=== PATIENT | female | born 1960 | race Caucasian/White ===

== ENCOUNTER → 2020-02-28 12:42 | Outpatient (BNVA) | payer OTHER, SELFPAY | PROVIDERS: Visit Provider Nurse Practitioner Family | DX: Z11.59 Encounter for screening for other viral diseases (principal) | CPT/HCPCS: 87635 ==

== ENCOUNTER 2020-03-29 08:30 | Outpatient (RCR) | payer OTHER, SELFPAY | END 2020-04-28 23:59 | disposition home or self-care (01) | LOC: SPT 08:30 | PROVIDERS: PCP Family Medicine; Referring Provider Chiropractor; Visit Provider Chiropractor | DX: M25.512 Pain in left shoulder (principal); M25.511 Pain in right shoulder | CPT/HCPCS: 97110; 97161 ==

== ENCOUNTER 2020-04-20 09:49 | Outpatient (CLI) | payer OTHER, SELFPAY ==
--- NOTE | 2020-04-20 09:53 | MM_ITS ---
WS: [id number] BILATERAL DIGITAL SCREENING MAMMOGRAPHY WITH CAD CLINICAL INFORMATION: SCREENING HISTORY: Screening mammogram. No current complaints. COMPARISON: February 06, 2007 TECHNIQUE: Bilateral CC and MLO views. FINDINGS: The breasts are composed of heterogeneous fibroglandular density tissue, which can limit the detectio n of small underlying mass lesions. No suspicious mass, asymmetry, calcifications, or architectural d istortion. No evidence of malignancy. MM/[place] [id number] IMPRESSION: BI-RADS: 1-Negative FOLLOW UP: 1 Year Follow-up Recommend return to annual screening mammography.
== END 2020-04-20 09:50 | disposition home or self-care (01) ==
LOC: RADSHAW 09:50
PROVIDERS: PCP Family Medicine; Visit Provider Family Medicine
DX: Z12.31 Encounter for screening mammogram for malignant neoplasm of breast (principal)
CPT/HCPCS: 77067

== ENCOUNTER 2022-06-24 06:21 | Emergency (ER) | payer BC, SELFPAY ==
[2022-06-24 06:23] VITALS: BP 103/52; PULSE 71; RESP 16; TEMP 36.8; O2SAT 96; BMI 22.4
--- NOTE | 2022-06-24 06:27 | XRR_ITS ---
PROCEDURE INFORMATION: Exam: XR Chest Exam date and time: 06/24/2022 6:33 AM Age: 61 years old Clinical indication: Pain; Angina pectoris; Prior surgery; Surgery type: Chest tubes; Additional info: Cp TECHNIQUE: Imaging protocol: Radiologic exam of the chest. Views: 1 view. Total images: 421 COMPARISON: No relevant prior studies available. FINDINGS: Lungs: Postsurgical changes noted at the lung apices with adjacent pleural thickening. Trace atelectasis or scar noted in the left lung base. Pleural spaces: See Lungs finding. Heart/Mediastinum: Unremarkable. No cardiomegaly. Bones/joints: Unremarkable. XR/XR chest 1V portable [id number] IMPRESSION: 1. Postsurgical changes noted at the lung apices with adjacent pleural thickening. 2. Trace atelectasis or scar noted in the left lung base.
[2022-06-24 06:31] VITALS: BP 114/58; PULSE 73; RESP 16; O2SAT 91
--- NOTE | 2022-06-24 06:34 | ECG_ITS ---
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 Measurements Intervals [place] Rate: 71 P: 43 CT: 176 QRS: 35 QRSD: 102 T: 61 QT: 420 QTc: 457 Interpretive Statements SINUS RHYTHM No previous ECG available for comparison Electronically Signed On 06-24-2022 15:16:35 SEAT TRIMMER by Darius Reyes M.D. [id number]
--- NOTE | 2022-06-24 06:36 | ED_ITS ---
HPI - Chest Pain General: Chief Complaint: Nausea/Vomiting/Diarrhea Stated Complaint: CP Time Seen by Provider: 06/24/22 06:27 History of Present Illness: 61-year-old female presents with chest pain. She reports around 2 AM this morning she started having some nausea and multiple epi sodes of vomiting. The approximately 1 hour prior to arrival she developed some lower substernal/epigastric chest pain. That she called EMS. The chest pain resolved following another episode of vomiting in route. She was given 324 aspirin by EMS and 4 Zofran. At this time she is currently not nauseous and does not have any chest pain. EMS reports she was significantly diaphoretic when they arrived. No radiation of the pain. Associated symptoms: Reports abdominal pain (Epigastric), nausea and vomiting; Deny dyspnea, fever(s) or palpitations Review of Systems Const: Denies: fever(s) or chills ENMT: Denies: throat pain or mouth pain Card: Reports: chest pain; Denies: palpitations, irregular heart rhythm or lightheadedness Resp: Denies: dyspnea or productive cough GI: Reports: abdominal pain (Epigastric), nausea and vomiting : Denies: flank pain or difficulty voiding Musc: Denies: neck pain or back pain Skin/Breast: Denies: rash or pruritus Neuro: Denies: headache(s) Psych: Denies: anxiety or depression ON LICENSE OF [facility] ED PFSH: Medical History Chronic middle ear effusion Generalized anxiety disorder Surgical History History of lung surgery Family History Other Hypertension Denies family history of Dementia Social History Smoking and tobacco status: current every day smoker cigarettes [ Other cigar ette details: 1/2 pack per week] Alcohol intake: current Alcohol intake frequency: few times a month Physical Exam Const: COMMON NORMALS: no acute distress, patient oriented x3, no limitations and healthy appearing HENMT: COMMON NORMALS: normocephalic, atraumatic and hearing grossly normal bilaterally HEAD & SCALP: normocephalic and atraumatic Resp: COMMON NORMALS: normal respiratory effort, No retractions and No use of accessory muscles Cardio: COMMON NORMALS: regular rate and regular rhythm RATE: regular rate RHYTHM: regular rhythm GI: COMMON NORMALS: Soft to palpation PALPATION: Yes Soft to palpation and Yes Tenderness to palpation present (GI) Details: other (Epigastric) Neuro: COMMON NORMALS: patient oriented x3, CN's II-XII intact bilaterally, moves all extremities and no focal motor deficits Skin: COMMON NORMALS: no rashes or lesions noted, no wounds and turgor normal GENERAL SKIN EXAM: no rashes or lesions noted and turgor normal Course Vital Signs: Vital signs: Vital Signs Temperature 98.2 F 06/24/22 06:23 Pulse Rate 75 06/24/22 08:28 Respiratory Rate 16 06/24/22 06:31 Blood Pressure 120/67 06/24/22 08:28 Pulse Oximetry 92 06/24/22 08:28 Oxygen Delivery Me thod 06/24/22 08:28 MDM - Chest Pain Medical Decision Making Patient's labs were reviewed by me. Patient had elevated white count which was likely reactive due to her nausea and vomiting. Patient's troponin x2 were negative. Patient is EKG was reviewed by me and was negative for any acute changes and ST elevation x2. Patient's radiology studies were reviewed and read initially by me than radiology results were reviewed. Patient's symptoms completely resolved following her vomiting in route with EMS. She has had no further symptoms since arriving. EMS also provided part of her HPI. Patient symptoms are likely due to her nausea and vomiting from unknown cause. Patient very unlikely to be ACS or coronary cause of her symptoms. Patient is feeling significantly better and ready to be discharged home. Lab Data 06/24/22 06:30 06/24/22 06:30 Radiology Impressions Chest X-Ray 06/24/22 06:27 IMPRESSION: 1. Postsurgical changes noted at the lung apices with adjacent pleural thickening. 2. Trace atelectasis or scar noted in the left lung base. Laboratory Results WBC 19.5 10^3/uL (4.0-10.0) H 06/24/22 06:30 RBC 5.09 10^6/uL (4.1-5.3) 06/24/22 06:30 Hgb 13.6 g/dL (11.5-15.3) 06/24/22 06:30 Hct 42.9 % (37.0-47.0) 06/24/22 06:30 MCV 84.3 fl (81-99) 06/24/22 06:30 MCH 26.7 pg (28.0-34.0) L 06/24/22 06:30 MCHC 31.7 g/dL (30.0-36.0) 06/24/22 06:30 RDW 13.2 % (12.1-15.1) 06/24/22 06:30 Plt Count 457 10^3/cmm (130-400) H 06/24/22 06:30 MPV 9.1 fL (7.4-10.4) 06/24/22 06:30 Neut % (Auto) 83.7 % 06/24/22 06:30 Lymph % (Auto) 11.7 % 06/24/22 06:30 [place] % (Auto) 3.9 % 06/24/22 06:30 Eos % (Auto) 0.1 % 06/24/22 06:30 Baso % (Auto) 0.3 % 06/24/22 06:30 Neut # (Auto) 16.32 10^3/uL (1.8-7.7) H 06/24/22 06:30 Lymph # (Auto) 2.3 10^3/uL (0.8-4.8) 06/24/22 06:30 [place] # (Auto) 0.8 10^3/uL (0.2-0.9) 06/24/22 06:30 Eos # (Auto) 0.0 10^3/uL (0.0-0.8) 06/24/22 06:30 Baso # (Auto) 0.1 10^3/uL (0.0-0.1) 06/24/22 06:30 Nucleated RBC % (auto) 0 % 06/24/22 06:30 Nucleated RBCs # 0.0 /100WBC 06/24/22 06:30 Sodium 139 mmol/L (136-145) 06/24/22 06:30 Potassium 4.2 mmol/L (3.5-5.1) 06/24/22 06:30 Chloride 101 mmol/L (98-107) 06/24/22 06:30 Carbon Dioxide 23 mmol/L (22-29) 06/24/22 06:30 Anion Gap 18.8 (5-19) 06/24/22 06:30 BUN 14 mg/dL (8-23) 06/24/22 06:30 Creatinine 0.7 mg/dL (0.5-0.9) 06/24/22 06:30 GFR Calculation 84.5 mL/min (90-130) L 06/24/22 06:30 Glucose 137 mg/dL (65-115) H 06/24/22 06:30 Calculated Osmolality 291 mOsm/kg (285-295) 06/24/22 06:30 Calcium 9.6 mg/dL (8.5-10.5) 06/24/22 06:30 Magnesium 1.6 mg/dL (1.7-2.3) L 06/24/22 06:30 Total Bilirubin 0.6 mg/dL (0.15-1.2) 06/24/22 06:30 AST 8 U/L (0-32) 06/24/22 06:30 ALT 16 U/L (0-33) 06/24/22 06:30 Alkaline Phosphatase 114 U/L (35-105) H 06/24/22 06:30 Troponin T Baseline 6 ng/L (0-10) 06/24/22 06:30 Troponin T 120 Minute 6.00 ng/L (0-10) 06/24/22 08:58 Total Protein 7.8 g/dL (6.6-8.7) 06/24/22 06:30 Albumin 4.4 g/dL (3.5-5.2) 06/24/22 06:30 Globulin 3.4 g/dL (1.3-4.6) 06/24/22 06:30 Lipase 42 U/L (13-60) 06/24/22 06:30 Urine Color Yellow (Yellow) 06/24/22 06:53 Urine Appearance Clear (CLEAR) 06/24/22 06:53 Urine pH 6 (5-7) 06/24/22 06:53 Ur Specific [place] 1.020 (1.005-1.030) 06/24/22 06:53 Urine Protein Neg (Negative) 06/24/22 06:53 Urine Glucose (UA) Norm (Normal) 06/24/22 06:53 Urine Ketones Negative (Negative) 06/24/22 06:53 Urine Blood Neg (Negative) 06/24/22 06:53 Urine Nitrate Negative (Negative) 06/24/22 06:53 Urine Bilirubin Neg (Negative) 06/24/22 06:53 Urine Urobilinogen Norm mg/dL (Negative) 06/24/22 06:53 Ur Leukocyte Esterase Negative (Negative) 06/24/22 06:53 Imaging Data CXR: My impression: no acute findings. EKG Data EKG 1: I personally reviewed and interpreted this EKG as follows: EKG interpretation date: 06/24/22 EKG interpretation time: 06:35 Interpretation: NSR, HR 71, VA 176, normal ekg, no acute changes Computer generated interpretation: normal ekg EKG 2: I personally reviewed and interpreted this EKG as follows: EKG interpretation date: 06/24/22 EKG interpretation time: 08:45 Prior EKG tracings: available for review Interpretation: HR 69, VA 160, NSR, unchanged from prior, normal ekg Discharge Plan Discharge Condition: Stable Prescriptions: No Action sertraline [Zoloft] 25 mg tablet 25 mg PO DAILY ascorbate calcium (vitamin C) 500 mg tablet 500 mg PO DAILY biotin 1 mg tablet 1 mg PO DAILY cholecalciferol (vitamin D3) 50 mcg (2,000 unit) capsule 50 mcg PO DAILY turmeric 400 mg capsule PO Adult 50 Plus Probiotic 4 billion cell capsule 4,000 mmu cells PO DAILY Rx Instructions: administer with a meal Referrals: Ray Humphrey MD [Primary Care Provider] - Coding Level of Care Code ED Bottom Filler for Chg Chaka
[2022-06-24 06:37] LABS: Basophils # 0.1 10^3/uL (0.0-0.1); Basophils % 0.3 %; Eosinophils % 0.1 %; Hematocrit 42.9 % (37.0-47.0); Hemoglobin 13.6 g/dL (11.5-15.3); Lymphocytes # 2.3 10^3/uL (0.8-4.8); Lymphocytes % 11.7 %; Mean Corpuscular HGB Conc 31.7 g/dL (30.0-36.0); Mean Corpuscular Hemoglobin 26.7 pg (28.0-34.0); Mean Corpuscular Volume 84.3 fl (81-99); Mean Platelet Volume 9.1 fL (7.4-10.4); Monocytes # 0.8 10^3/uL (0.2-0.9); Monocytes % 3.9 %; Neutrophils # 16.32 10^3/uL (1.8-7.7); Neutrophils % 83.7 %; Nucleated Red Blood Cells % 0 %; Platelet Count 457 10^3/cmm (130-400); Red Blood Count 5.09 10^6/uL (4.1-5.3); Red Cell Distribution Width 13.2 % (12.1-15.1); White Blood Count 19.5 10^3/uL (4.0-10.0)
[2022-06-24 06:55] LABS: Chloride 101 mmol/L (98-107); Potassium 4.2 mmol/L (3.5-5.1); Sodium 139 mmol/L (136-145)
[2022-06-24 06:59] LABS: Add Urine Microscopic? NO; Charge for UA Resulting for Rev
[2022-06-24 07:00] VITALS: BP 114/51; PULSE 70; O2SAT 97
[2022-06-24 07:01] LABS: Troponin(5th) Baseline 6 ng/L (0-10)
[2022-06-24 07:05] LABS: Alanine Aminotransferase 16 U/L (0-33); Albumin Level 4.4 g/dL (3.5-5.2); Alkaline Phosphatase 114 U/L (35-105); Anion Gap 18.8 (5-19); Aspartate Amino Transferase 8 U/L (0-32); Blood Urea Nitrogen 14 mg/dL (8-23); Calcium 9.6 mg/dL (8.5-10.5); Carbon Dioxide 23 mmol/L (22-29); Globulin 3.4 g/dL (1.3-4.6); Glomerular Filtration Rate 84.5 mL/min (90-130); Glucose 137 mg/dL (65-115); Lipase 42 U/L (13-60); Magnesium 1.6 mg/dL (1.7-2.3); Osmolality Calculated 291 mOsm/kg (285-295); Total Bilirubin 0.6 mg/dL (0.15-1.2); Total Protein 7.8 g/dL (6.6-8.7)
[2022-06-24 07:10] LABS: Bilirubin Urine Neg (Negative); Blood Urine Neg (Negative); Glucose Urine UA Norm (Normal); Ketones Urine Negative (Negative); Leukocyte Esterase Urine Negative (Negative); Nitrate Urine Negative (Negative); Protein Urine Neg (Negative); Urine Appearance Clear (CLEAR); Urine Color Yellow (Yellow); Urobilinogen Urine Norm (Negative); pH Urine 6 (5-7)
[2022-06-24 08:28] VITALS: BP 120/67; PULSE 75; O2SAT 92
--- NOTE | 2022-06-24 08:28 | ECG_ITS ---
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 Measurements Intervals [place] Rate: 69 P: 63 [place]: 160 QRS: 25 QRSD: 106 T: 53 QT: 409 QTc: 440 Interpretive Statements SINUS RHYTHM Compared to ECG 06/24/2022 06:34:34 No significant changes Electronically Signed On 06-24-2022 15:18:22 SANITATION TECHNICIAN by Darius Reyes M.D. [id number]
[2022-06-24 08:30] VITALS: BP 103/62; PULSE 73; O2SAT 94
[2022-06-24 09:30] VITALS: BP 107/61; PULSE 71; O2SAT 94
[2022-06-24 09:51] LABS: Troponin 5 2HR Delta 0 ABS# (0-10)
== END 2022-06-24 09:47 | disposition home or self-care (01) ==
PROVIDERS: Emergency Provider Student in an Organized Health Care Education/Training Program; PCP Family Medicine
DX: R07.9 Chest pain, unspecified (principal); F17.210 Nicotine dependence, cigarettes, uncomplicated
CPT/HCPCS: 36415; 71045; 80053; 81003; 83690; 83735; 84484; 85025; 93005; 99285

== ENCOUNTER → 2025-02-15 16:12 | Outpatient (BNVA) | payer MEDICARE, SELFPAY | PROVIDERS: PCP Family Medicine; Visit Provider Family Medicine | DX: Z13.6 Encounter for screening for cardiovascular disorders (principal); Z00.00 Encounter for general adult medical examination without abnormal findings | CPT/HCPCS: 80053; 80061; 85025 ==

== ENCOUNTER 2025-02-22 13:50 | Outpatient (CLI) | payer MEDICARE, SELFPAY ==
--- NOTE | 2025-02-22 14:00 | XR_ITS ---
WS: [id number] SCREENING DEXA SCAN [employer] CLINICAL INFORMATION: screening COMPARISON: None. FINDINGS: The L1-L4 bone mineral density measures 0.999 g/cm2. This corresponds to a T score score of -1.5 and Z score of 0.4. Left femoral neck bone mineral density measures 0.858 g/cm2. This corresponds to a T score of -1.2 and Z score of 0.3. Right femoral neck bone mineral density measures 0.838 g/cm2. This corresponds to a T score -1.3of and Z score of 0.1. Mean femoral neck bone mineral density measures 0.848 g/cm2. This corresponds to a T score of -1.3 and Z score of 0.2. XR/XR DEXA axial skeleton* [id number] IMPRESSION: Osteopenia lumbar spine. Osteopenia femoral necks. Patient's FRAX calculated 10 year probability for major osteoporotic fracture i s 9.1% and osteoporotic hip fracture is 1.4%.
--- NOTE | 2025-02-22 14:40 | MM_ITS ---
WS: [id number] BILATERAL 3D TOMOSYNTHESIS DIGITAL SCREENING MAMMOGRAPHY WITH CAD CLINICAL INFORMATION: screening HISTORY: Screening mammogram. No current complaints. COMPARISON: 2020 TECHNIQUE: Bilateral CC and MLO views. FINDINGS: The breasts are composed of heterogeneous fibroglandular density tissue, which can limit the detection of small underlying mass lesions. No suspicious mass, asymmetry, calcifications, or architectural distortion. No evidence of malignancy. Vascular calcification. A few incidental punctate calcifications. MM/MM [facility] tomosynthesis [id number] IMPRESSION: DENSITY: The breasts are heterogeneously dense, which may obscure small masses. BI-RADS: 2 - Benign FOLLOW UP: 1 Year Follow-up Recommend return to annual screening mammography.
== END 2025-02-22 13:51 | disposition home or self-care (01) ==
LOC: RAD 13:51
PROVIDERS: PCP Family Medicine; Visit Provider Family Medicine
DX: Z00.00 Encounter for general adult medical examination without abnormal findings (principal); Z13.820 Encounter for screening for osteoporosis; Z12.31 Encounter for screening mammogram for malignant neoplasm of breast; R92.323 Mammographic fibroglandular density, bilateral breasts; M85.88 Other specified disorders of bone density and structure, other site; M85.852 Other specified disorders of bone density and structure, left thigh; M85.851 Other specified disorders of bone density and structure, right thigh
CPT/HCPCS: 77063; 77067; 77080